=== PATIENT | female | born 1955 | race Caucasian/White ===

== ENCOUNTER → 2023-01-04 18:22 | Outpatient (CLI) | payer MEDICARE, SELFPAY ==
[2023-01-04 19:28] LABS: Influenza A - CEPHEID Flu A NEGATIVE (NEGATIVE); Influenza B - CEPHEID Flu B NEGATIVE (NEGATIVE); Respiratory Syncytial Virus Negative (Negative)
[2023-01-04 19:34] LABS: COVID-19 CEPHEID 4-PLEX PCR Negative (Negative)
== END ==
PROVIDERS: Visit Provider Physician Assistant
DX: R09.81 Nasal congestion (principal)
CPT/HCPCS: 0241U